=== PATIENT | female | born 1950 | race Caucasian/White ===

== ENCOUNTER 2019-04-12 06:45 | Outpatient (CLI) | payer MEDICARE ==
[~2019-04-12] VITALS: Ht 166.4 cm; Wt 100.8 kg
[~2019-04-12 06:45] MED LIST: EPINEPHRINE 1 MG/ML, 1ML ONE; KETOROLAC 60 MG/2 ML ONE; ROPIvacaine/PF 0.2%, 20 ML ONE; SODIUM CHLORIDE 0.9% 0 ML ONE; TRANEXAMIC ACID 100 MG/ML, 10ML ONE
[2019-04-12] MEDS ORDERED: VANCOMYCIN PER PHARMACY MC STA ×2 (07:09→07:50)
[2019-04-12] MEDS ORDERED: LACTATED RINGERS 1,000 ML IV SCH (07:27)
[2019-04-12] MEDS ORDERED: PLEASE ENTER HEIGHT AND WEIGHT MC SCH (07:30)
[2019-04-12] MEDS ORDERED: ACETAMINOPHEN 500 MG TABLET PO ONE (07:30)
[2019-04-12] MEDS ORDERED: PLEASE ENTER ALLERGIES MC SCH (07:30)
[2019-04-12] MEDS ORDERED: GABAPENTIN 300 MG CAPSULE PO ONE (07:30)
[2019-04-12] MEDS ORDERED: LIDOCAINE-MPF 1%, 2ML INFIL ONE (07:30)
[2019-04-12 07:32] VITALS: BP 136/89
[2019-04-12] MEDS ORDERED: VIT1CAPS42 PO (07:39)
[2019-04-12] MEDS ORDERED: METF500T17 PO (07:39)
[2019-04-12] MEDS ORDERED: VENL75TA2 PO (07:39)
[2019-04-12] MEDS ORDERED: OMEP-110 PO (07:39)
[2019-04-12] MEDS ORDERED: vit d 3 PO (07:39)
[2019-04-12] MEDS ORDERED: QUET100T PO (07:39)
[2019-04-12] MEDS ORDERED: LEVO75TA5 PO (07:39)
[2019-04-12] MEDS ORDERED: VIT B12 PO (07:39)
[2019-04-12] MEDS ORDERED: hydromorphone PO (07:39)
[2019-04-12] MEDS ORDERED: TOPI100T8 PO (07:39)
[2019-04-12] MEDS ORDERED: SUMA100T4 PO (07:39)
[2019-04-12] MEDS ORDERED: PHEN37.53 PO (07:39)
[2019-04-12] MEDS ORDERED: ARIP10TA33 PO (07:39)
[2019-04-12] MEDS ORDERED: MELA10CA PO (07:39)
[2019-04-12] MEDS ORDERED: OXYB10TA2 PO (07:39)
[2019-04-12] MEDS ORDERED: TIZA4CAP PO (07:39)
[2019-04-12] MEDS ORDERED: MELO7.5T31 PO (07:39)
[2019-04-12] MEDS ORDERED: POTA10CA PO (07:39)
[2019-04-12] MEDS ORDERED: GABA300C10 PO ×2 (07:49)
[2019-04-12] MEDS ORDERED: PROP1DRO6 LEFTEYE (07:54)
[2019-04-12] MEDS ORDERED: PREDNISONE EYE LEFTEYE (07:54)
[2019-04-12] MEDS ORDERED: VANCOMYCIN 1,500 MG in SODIUM CHLORIDE 0.9% 250 ML IV ONE (08:00)
== END 2019-04-12 08:50 | disposition home or self-care (01) ==
LOC: ORIP 06:45 → OUT 06:45 → UNDOADMIN 06:45 → UNDODISIN 08:50 → OUT 08:50 → EDSTATUS 13:00
PROVIDERS: ATTEND Orthopaedic Surgery
DX: M17.11 Unilateral primary osteoarthritis, right knee (principal); Z96.651 Presence of right artificial knee joint; F12.20 Cannabis dependence, uncomplicated
CPT/HCPCS: 87081; J0171; J1885; J2795